=== PATIENT | female | born 1975 | race Caucasian/White ===

== ENCOUNTER → 2017-08-01 | Outpatient (REF) ==
[~2017-08-01] MED LIST: PRINIVIL2.5 MG PO
[2017-08-01 18:26] LABS: IRON,SERUM 73 ug/dL (35-150)
[2017-08-01 18:37] LABS: TOTAL IRON BINDING CAPACITY 395 ug/dL (265-497)
[2017-08-01 19:05] LABS: FERRITIN 98 ng/mL (6-137)
== END ==
LOC: ZLAB.WCH 18:05
PROVIDERS: Nurse Practitioner Family
DX: Z01.89 Encounter for other specified special examinations (principal)